=== PATIENT | female | born 1985 | race Caucasian/White ===

== ENCOUNTER 2016-11-04 22:59 | Inpatient (IN) | payer OTHER ==
[~2016-11-04] VITALS: Ht 170.2 cm; Wt 82.6 kg
--- NOTE | 2016-11-04 23:10 | NUR ---
TO BED 3 AMBULATORY C/O ABDOMINAL PAIN WITH N/V X3 DAYS. PT AAOX4 NO ACUTE DISTRESS NOTED, RESP EVEN AND UNLABORED. PENDING ER MD HUBBARD.
--- NOTE | 2016-11-04 23:12 | NUR ---
ER MD AT BEDSIDE TO EVAL PT WITH ORDERS RECEIVED.
--- NOTE | 2016-11-04 23:34 | NUR ---
RN AT BEDSIDE TO MEDICATE PT.
[2016-11-04 23:38] LABS: BASOPHILS # (AUTO) 0.1 /CMM (0.0-0.2); BASOPHILS % (AUTO) 0.8 % (0.0-2.0); EOSINOPHILS # (AUTO) 0.1 /CMM (0.0-0.7); EOSINOPHILS % (AUTO) 0.6 % (0.0-6.0); HEMATOCRIT 48 % (33-45); HEMOGLOBIN 16.5 g/dL (11.5-14.8); LYMPHOCYTES # (AUTO) 1.2 /CMM (0.8-4.8); LYMPHOCYTES % (AUTO) 12.3 % (20.0-44.0); MEAN CORPUSCULAR HEMOGLOBIN 31 PG (26.0-33.0); MEAN CORPUSCULAR HGB CONC 34 g/dl (31.0-36.0); MEAN CORPUSCULAR VOLUME 90 fL (82-100); MONOCYTES # (AUTO) 0.8 /CMM (0.1-1.30); NEUTROPHILS # (AUTO) 7.7 /CMM (1.8-8.9); NEUTROPHILS % (AUTO) 78.3 % (43.0-81.0); PLATELET COUNT (AUTO) 227 /CMM (150-450); RDW COEFFICIENT OF VARIATION 12.8 (11.5-15.0); RED BLOOD CELL COUNT(AUTO) 5.32 MIL/uL (4.0-5.2); WHITE BLOOD COUNT (AUTO) 9.8 K/uL (4.3-11.0)
[2016-11-04 23:59] LABS: ALBUMIN 4.1 g/dL (3.4-5.0); BILIRUBIN,DIRECT 4.1 mg/dL (0.0-0.2); BILIRUBIN,TOTAL 5.6 mg/dL (0.2-1.0); CALCIUM, SERUM 8.9 mg/dL (8.5-10.1); CREATININE 0.7 mg/dL (0.6-1.3); POTASSIUM 3.4 mmol/L (3.5-5.1); TOTAL PROTEIN, SERUM 6.9 g/dL (6.4-8.2)
--- NOTE | 2016-11-05 00:35 | NUR ---
JUAN LOGAN AT BEDSIDE TO RE-EVAL PT.
--- NOTE | 2016-11-05 00:59 | NUR ---
PT STILL C/O ABDOMINAL PAIN 09/15. ER MD MADE AWARE WITH ORDERS RECEIVED. RN TO MEDICATE PT.
--- NOTE | 2016-11-05 01:05 | NUR ---
PT MEDICATED BY RN PER ER MD ORDER.
--- NOTE | 2016-11-05 01:10 | NUR ---
GALLBLADDER FRANCES DONE.
--- NOTE | 2016-11-05 01:26 | NUR ---
CALLED BRENDA TO EXPEDITE CT REPORT.
--- NOTE | 2016-11-05 01:27 | NUR ---
M/S 112-1
--- NOTE | 2016-11-05 01:40 | NUR ---
IVPB K BAG #1 OF 2 TRANFUSING AT THIS TIME. PT PLACED ON MONITOR.
[2016-11-05 01:43] LABS: APPEARANCE,URINE SL CLOUDY (CLEAR); BILIRUBIN,URINE 2+ (NEGATIVE); BLOOD, URINE 3+ Ery/uL (NEGATIVE); KETONES,URINE TRACE (NEGATIVE); LEUKOCYTE ESTERASE ,URINE NEGATIVE (NEGATIVE); NITRITE, URINE NEGATIVE (NEGATIVE); PH,URINE 6.5 (5.0-8.0); PROTEIN,URINE TRACE mg/dl (NEGATIVE); UGLUCOSE NEGATIVE (NEGATIVE)
[2016-11-05 01:44] LABS: COLOR,URINE DARK YELLOW (YELLOW)
--- NOTE | 2016-11-05 01:46 | NUR ---
Shiv collier in [facility] - 11/05/16 at 0209 by BRITNEY PT TRANSPORTED TO RADIOLOGY FOR CT.
[2016-11-05 01:47] LABS: BACTERIA,URINE Few /HPF (None Seen); RBC,URINE 81-100 /HPF (0-2); SQUAMOUS EPITHELIAL CELL,UR Few /HPF (None Seen)
--- NOTE | 2016-11-05 01:49 | NUR ---
MADE PANEL CALL.
--- NOTE | 2016-11-05 01:52 | NUR ---
ER MD SPOKE TO DR. JESSICA LENNON REGARDING PT ADMISSION.
--- NOTE | 2016-11-05 01:55 | NUR ---
REPORT CALLED TO M/S ALEXIS BYNUM. WILL TRANSPORT PT TO ROOM 112-2.
[2016-11-05 02:20] VITALS: BP 133/76
--- NOTE | 2016-11-05 02:20 | NUR ---
RN NOTES RECEIVED PATIENT FROM ER VIA STRETCHER IN STABLE CONDITION, NO RESPIRATORY DISTRESS OR SHORTNESS OF BREATH. BREATHING EVEN AND UNLABORED. ALERT AND ORIENTED X 4. VERBALLY ABLE TO COMMUNICATE NEEDS. AMBULATORY. CONTINENT OF BOWEL AND BLADDER FUNCTION. COMPLAINED OF MILD EPIGASTRIC PAIN.SKIN ASSESSMENT DONE. VITAL SIGNS WNL. WILL CONTINUE TO MONITOR.
[2016-11-05 02:30] VITALS: BP 133/76
[2016-11-05 04:00] VITALS: BP 122/73
--- NOTE | 2016-11-05 06:46 | NUR ---
RN CLOSING NOTES PATIENT RESTING COMFORTABLY IN BED, STILL WITH COMPLAINT OF MILD PAIN IN ABDOMEN. NO SHORTNESS OF BREATH. FOR MRI IN AM. NO SIGNIFICANT CHANGE OF CONDITION. WILL ENDORSE TO AM SHIFT FOR CONTINUITY OF CARE.
[2016-11-05] MEDS ORDERED: DEXT5TAB15 PO (07:48)
[2016-11-05] MEDS ORDERED: NORG1TAB22 PO (07:48)
[2016-11-05] MEDS ORDERED: OLAN2.5T3 PO (07:48)
[2016-11-05] MEDS ORDERED: PRAZ2CAP2 PO (07:48)
[2016-11-05] MEDS ORDERED: LORA1TAB PO (07:48)
[2016-11-05 08:00] VITALS: BP 121/85
--- NOTE | 2016-11-05 08:00 | NUR ---
MS RN NOTES RECEIVED PATIENT IN STABLE CONDITION, NO RESPIRATORY DISTRESS OR SHORTNESS OF BREATH. BREATHING EVEN AND UNLABORED. ALERT AND ORIENTED X 4. VERBALLY ABLE TO COMMUNICATE NEEDS. AMBULATORY. CONTINENT OF BOWEL AND BLADDER FUNCTION. COMPLAINED OF MILD EPIGASTRIC PAIN AND FEELS NAUSEOUS.MORPHINE SULFATE IV AND ZOFRAN IV GIVEN PRN FOR MANAGEMENT.WILL CONTINUE TO MONITOR FOR EFFECTIVENESS.
--- NOTE | 2016-11-05 08:27 | NUR ---
TEXTED DR. WILSON FOR MRI APPROVAL.
--- NOTE | 2016-11-05 09:37 | NUR ---
MRI APPROVED.SPOKE TO NURSE SOON, IT WILL BE DONE AT 1PM AND PATIENT HAS TO BE NPO. 4 HRS BEFORE THE EXAM.
--- NOTE | 2016-11-05 13:40 | NUR ---
PT WENT FOR MRCP PROCEDURE AND WAS PUT ON NPO SINCE BREAKFAST TIME.PT IS COMPLIANT.CONSENT AND CHECKLIST HAS BEEN SIGNED.
[2016-11-05 16:00] VITALS: BP 126/78
--- NOTE | 2016-11-05 18:00 | NUR ---
PT RESTING IN BED WITH MILD NAUSEA AND DENIES DISTRESS.ZOFRAN GIVEN PRN AND NOT DUE YET.HOB ELEVATED.CALL LIGHT PLACED WITHIN REACH.
[2016-11-05 20:00] VITALS: BP 119/70
--- NOTE | 2016-11-05 22:46 | NUR ---
MS RN NOTES PATIENT C/O NAUSEA AND VOMITING. NOTED VOMITING. INFORMED MD, WITH NEW ORDERS OK TO GIVE EXTRA DOSE OF ZOFRAN AND NS AT 100ML/HR. WILL CONTINUE TO MONITOR. RELAYED TO PRIMARY NURSE.
[2016-11-06] VITALS: BP 119/70
--- NOTE | 2016-11-06 02:00 | NUR ---
MANAGER OF PRODUCT NOTE DC'D WILBERT. PATIENT TOLERATED WELL.
[2016-11-06 04:00] VITALS: BP 124/67
--- NOTE | 2016-11-06 06:05 | NUR ---
MS RN NOTE PATIENT STABLE. PAIN AND NAUSEA MANAGED THROUGHOUT THE NIGHT. ALL NEEDS MET AND ATTENDED TO. WILL ENDORSE TO DAY SHIFT FOR NAUN.
[2016-11-06 06:58] LABS: BASOPHILS % (AUTO) 0.7 % (0.0-2.0); EOSINOPHILS # (AUTO) 0.3 /CMM (0.0-0.7); EOSINOPHILS % (AUTO) 5.8 % (0.0-6.0); HEMATOCRIT 41 % (33-45); LYMPHOCYTES # (AUTO) 1.9 /CMM (0.8-4.8); LYMPHOCYTES % (AUTO) 35.1 % (20.0-44.0); MEAN CORPUSCULAR HEMOGLOBIN 32 PG (26.0-33.0); MEAN CORPUSCULAR HGB CONC 34 g/dl (31.0-36.0); MEAN CORPUSCULAR VOLUME 92 fL (82-100); MONOCYTES # (AUTO) 0.6 /CMM (0.1-1.30); MONOCYTES % (AUTO) 11.8 % (2.0-12.0); NEUTROPHILS # (AUTO) 2.5 /CMM (1.8-8.9); NEUTROPHILS % (AUTO) 46.6 % (43.0-81.0); PLATELET COUNT (AUTO) 185 /CMM (150-450); RDW COEFFICIENT OF VARIATION 13.6 (11.5-15.0); RED BLOOD CELL COUNT(AUTO) 4.43 MIL/uL (4.0-5.2); WHITE BLOOD COUNT (AUTO) 5.4 K/uL (4.3-11.0)
[2016-11-06 07:13] LABS: ALBUMIN 3.3 g/dL (3.4-5.0); BILIRUBIN,TOTAL 6.5 mg/dL (0.2-1.0); CALCIUM, SERUM 8.4 mg/dL (8.5-10.1); CREATININE 0.8 mg/dL (0.6-1.3); MAGNESIUM 1.7 mg/dL (1.8-2.4); PHOSPHORUS 2.4 mg/dL (2.5-4.9); POTASSIUM 3.5 mmol/L (3.5-5.1); TOTAL PROTEIN, SERUM 5.8 g/dL (6.4-8.2)
[2016-11-06 07:22] LABS: THYROID STIMULATING HORMONE 1.462 uIU/mL (0.358-3.74)
--- NOTE | 2016-11-06 07:50 | NUR ---
MS RN OPENING NOTE PATIENT IS ALERT AND ORIENTED x4. PATIENT STATES PAIN AT THIS TIME 8/10, BUT DOES NOT WANT PAIN MEDICATION JUST YET. OFFERED OTHER ALTERNATIVES. NO SOB OR DISTRESS NOTED. CALL LIGHT WITHIN REACH. SAFETY MEASURES IMPLEMENTED. ABLE TO COMMUNICATE NEEDS. AM LABS DONE THIS MORNING. IV INTACT AND PATENT NO REDNESS OR SWELLING NOTED. IV FLUIDS RUNNING AT THIS TIME, NS AT 100ML/HR TOLERATING WELL. PATIENT STATES SHE FEELS NAUSEOUS WHEN SHE AMBULATES, OFFERED ICE CHIPS. PATIENT RESTING IN BED AT THIS TIME. WILL CONTINUE TO MONITOR THROUGHOUT SHIFT
[2016-11-06 08:00] VITALS: BP 100/64
[2016-11-06 16:00] VITALS: BP 123/77
--- NOTE | 2016-11-06 18:47 | NUR ---
MS RN CLOSING NOTE PATIENT IS ALERT AND ORIENTED x4. NO PAIN AT THIS TIME NOTED. NO SOB OR DISTRESS NOTED. CALL LIGHT WITHIN REACH AT ALL TIMES. SAFETY MEASURES IMPLEMENTED. ABLE TO COMMUNICATE NEEDS. IV ON RIGHT WRIST INTACT AND PATENT, IVF RUNNING AT 100 ML/HR, TOLERATING WELL. ALL ELECTROLYTES REPLACED NEEDED. PATIENT HAD 6 EPISODES OF EMESIS, MD AWARE. HAS AM LAB DRAW TOMORROW MORNING 11/07/16. WILL ENDORSE TO [facility] SUPERVISOR NURSE FOR NAUN
[2016-11-06 20:00] VITALS: BP 123/82
--- NOTE | 2016-11-07 00:15 | NUR ---
MD CASTLE AT BEDSIDE, WITH NEW ORDER OF LABS IN AM. PT AWARE.
[2016-11-07 04:00] VITALS: BP 135/85
[2016-11-07 06:20] LABS: BASOPHILS % (AUTO) 0.6 % (0.0-2.0); EOSINOPHILS # (AUTO) 0.3 /CMM (0.0-0.7); EOSINOPHILS % (AUTO) 4.4 % (0.0-6.0); HEMATOCRIT 40 % (33-45); HEMOGLOBIN 14.1 g/dL (11.5-14.8); LYMPHOCYTES # (AUTO) 2.4 /CMM (0.8-4.8); LYMPHOCYTES % (AUTO) 39.6 % (20.0-44.0); MEAN CORPUSCULAR HEMOGLOBIN 32 PG (26.0-33.0); MEAN CORPUSCULAR HGB CONC 35 g/dl (31.0-36.0); MEAN CORPUSCULAR VOLUME 93 fL (82-100); MONOCYTES # (AUTO) 0.9 /CMM (0.1-1.30); MONOCYTES % (AUTO) 14.9 % (2.0-12.0); NEUTROPHILS # (AUTO) 2.4 /CMM (1.8-8.9); NEUTROPHILS % (AUTO) 40.5 % (43.0-81.0); PLATELET COUNT (AUTO) 186 /CMM (150-450); RDW COEFFICIENT OF VARIATION 13.3 (11.5-15.0); RED BLOOD CELL COUNT(AUTO) 4.36 MIL/uL (4.0-5.2)
[2016-11-07 06:34] LABS: CALCIUM, SERUM 8.4 mg/dL (8.5-10.1); CREATININE 0.8 mg/dL (0.6-1.3); PHOSPHORUS 2.9 mg/dL (2.5-4.9); POTASSIUM 3.6 mmol/L (3.5-5.1)
[2016-11-07 08:00] VITALS: BP 128/85
[2016-11-07 16:00] VITALS: BP_SYST 116; BP_SYST 121; BP_DIAS 66; BP_DIAS 80
--- NOTE | 2016-11-07 18:55 | NUR ---
RN NOTE NO ACUTE CHANGE OF CONDITION THIS SHIFT. NO EMESIS THIS SHIFT. PATIENT BREATHING EVEN AND UNLABORED ON ROOM AIR. PRN MEDICATION EFFECTIVE. DR. FOSS SAW PATIENT TODAY. DR. MOFFETT SAID HE WOULD CONTACT GI DOCTOR FOR FURTHER WORK UP. PATIENT IS AWARE. SIGNIFICANT OTHER AT BED SIDE AT THIS TIME. TOLERATING SMALL AMOUNTS OF PO INTAKE. EDUCATED PATIENT AT LENGTH ABOUT RISKS AND BENEFITS OF MEDICATION BEING GIVEN AND DIAGNOSTIC TESTS. CALL LIGHT IN REACH. PATIENT ABLE TO CLEARLY VERBALIZE NEEDS.
[2016-11-07 20:00] VITALS: BP 138/91
[2016-11-07 22:26] LABS: FERRITIN 301 ng/mL (8-388); IRON, SERUM 259 ug/dl (50-175)
[2016-11-08] VITALS: BP 129/92
[2016-11-08 04:00] VITALS: BP_SYST 121; BP_SYST 145; BP_DIAS 69; BP_DIAS 85
[2016-11-08 05:53] LABS: BASOPHILS % (AUTO) 0.6 % (0.0-2.0); EOSINOPHILS # (AUTO) 0.3 /CMM (0.0-0.7); EOSINOPHILS % (AUTO) 4.4 % (0.0-6.0); HEMATOCRIT 39 % (33-45); HEMOGLOBIN 13.6 g/dL (11.5-14.8); LYMPHOCYTES # (AUTO) 2.4 /CMM (0.8-4.8); MEAN CORPUSCULAR HEMOGLOBIN 32 PG (26.0-33.0); MEAN CORPUSCULAR HGB CONC 35 g/dl (31.0-36.0); MEAN CORPUSCULAR VOLUME 92 fL (82-100); MONOCYTES # (AUTO) 0.9 /CMM (0.1-1.30); NEUTROPHILS # (AUTO) 2.3 /CMM (1.8-8.9); PLATELET COUNT (AUTO) 188 /CMM (150-450); RDW COEFFICIENT OF VARIATION 13.2 (11.5-15.0); RED BLOOD CELL COUNT(AUTO) 4.28 MIL/uL (4.0-5.2); WHITE BLOOD COUNT (AUTO) 5.8 K/uL (4.3-11.0)
[2016-11-08 06:07] LABS: ALBUMIN 3.2 g/dL (3.4-5.0); BILIRUBIN,TOTAL 3.5 mg/dL (0.2-1.0); CALCIUM, SERUM 8.2 mg/dL (8.5-10.1); CREATININE 0.8 mg/dL (0.6-1.3); POTASSIUM 3.2 mmol/L (3.5-5.1); TOTAL PROTEIN, SERUM 5.9 g/dL (6.4-8.2)
--- NOTE | 2016-11-08 06:45 | NUR ---
Slep most of the night after plain meds given
--- NOTE | 2016-11-08 07:49 | NUR ---
RN NOTES: PT RECEIVED IN STABLE CONDITION ALERT AWAKE OX4. ABLE TO MAKE NEEDS KNOWN. ON ROOM AIR, BREATHING PATTERN REGULAR & UNLABORED. IV SITE INTACT, RUNNING WITH IV FLUIDS ORDERED BY MD. AMBULATORY WITHOUT DIFFICULTY. C/O ABDOMINAL PAIN, PAIN MANAGEMENT MEDICATION GIVEN ORDERED. SAFETY MEASURES OBSERVED. NPO EXCEPT MEDS. CALL LIGHT WITHIN REACH. WILL CONTINUE TO MONITOR.
[2016-11-08 08:00] VITALS: BP 127/84
--- NOTE | 2016-11-08 15:44 | NUR ---
RN NOTES: PATIENT HAD EGD TODAY WITH FINDING DUODENAL ULCER & GASTRITIS. WAITING FOR H-PYLORI RESULTS. CONTINUE ON PAIN MANAGEMENT MEDICATION ORDERED. POTASSIUM REPLACEMENT WAS ORDERED IV, PATIENT WAS NOT ABLE TO TOLERATE. GIVEN 1 BAG, 2 ND BAG WASTED. SPOKE WITH PHARMACIST CONVERT TO PO. 3 TABLETS 10MEQ POTASSIUM GIVEN TO PATIENT ORDERED. CONTINUE TO MONITOR CLOSELY.
[2016-11-08 16:00] VITALS: BP 121/65
--- NOTE | 2016-11-08 19:43 | NUR ---
RN INITIAL NOTE; PT ON THE BED RESTING , A/O X 4 , BREATHING EVEN AND UNLABORED ON ROOM AIR , WITH C/O ABD PAIN 6/10 AT THIS TIME, WILL GIVE PAIN MEDS , NON PHARMACOLOGICAL INTERVENTIONS APPLIED. PERIPHERAL IV IN RW 22 G INTACT AND PATENT WITH NS @ 100 MLS/HR . BED IN THE LOWEST/LOCKED POSITION . SAFETY MEASURES APPLIED. CONTINENT TO BOWEL/BLADDER . WILL CONTINUE TO MONITOR .
[2016-11-08 20:00] VITALS: BP 124/78
--- NOTE | 2016-11-08 20:20 | NUR ---
RN NOTE; PRN NORCO 10/325 MG PO GIVEN FOR ABDOMINAL PAIN 09/15 ,NON PHARMACOLOGICAL INTERVENTION APPLIED. TOLERATED WELL AT THIS TIME , WILL REASSESS.
--- NOTE | 2016-11-08 23:56 | NUR ---
RN NOTE; PRN MORPHINE 3 MG IV GIVEN FOR ABDOMINAL PAIN 09/15 ,NON PHARMACOLOGICAL INTERVENTION APPLIED. TOLERATED WELL AT THIS TIME , WILL REASSESS.
--- NOTE | 2016-11-09 01:22 | NUR ---
RN NOTE; PRN AMBIEN 5 MG PO GIVEN FOR INSOMNIA AND PRN ZOFRAN 4 MG IV GIVEN FOR NAUSEA , TOLERATED WELL AT THIS TIME , WILL REASSESS.
[2016-11-09 04:00] VITALS: BP 117/72
--- NOTE | 2016-11-09 06:48 | NUR ---
RN EOS NOTE; PT REMAINED STABLE DURING THE SHIFT. NO ANY DISTRESS NOTED. ALL NEEDS ATTENDED PROMPTLY. PRN MEDS GIVEN FOR PAIN . IVF TOLERATED WELL. ASSISTED TO RESTROOM NEEDED , PRN MILK OF MAGNESIA GIVEN FOR CONSTIPATION . WILL ENDORSE TO NEXT SHIFT RN FOR CONTINUITY OF CARE.
--- NOTE | 2016-11-09 07:05 | NUR ---
RN INITIAL NOTE PATIENT RECEIVED IN BED RESTING. NO S/S OF PAIN OR DISCOMFORT. ABLE TO MAKE NEEDS KNOWN. RESPIRATIONS ARE EVEN AND UNLABORED. NO S/S OF SOB OR RESPIRATORY DISTRESS. SATING WELL ON ROOM AIR. SKIN IS WARM AND DRY TO TOUCH. IV SITE FLUSHED, PATENT. SAFETY PRECAUTIONS IMPLEMENTED, BED IN LOCKED, LOW POSITION WITH TWO SIDE RAILS UP. CALL LIGHT AND BELONGINGS WITHIN EASY REACH. WILL CONTINUE TO MONITOR.
[2016-11-09 08:00] VITALS: BP 114/80
[2016-11-09] MEDS ORDERED: HYDR-552 PO (13:50)
[2016-11-09] MEDS ORDERED: ONDA4TAB8 PO (13:50)
[2016-11-09 16:00] VITALS: BP 134/74
--- NOTE | 2016-11-09 18:00 | NUR ---
RN CLOSING NOTE. PATIENT DISCHARGED, PAPERWORK COMPLETE. IV SITE AND ID REMOVED.
== END 2016-11-09 19:56 | disposition home or self-care (01) ==
LOC: ER 23:02 → MEDSG1 11-05 02:07
PROC: 0DB68ZX Excision of Stomach, Via Natural or Artificial Opening Endoscopic, Diagnostic (ICD-10-PCS; principal; 2016-11-08 09:40)
PROC: 0DB98ZX Excision of Duodenum, Via Natural or Artificial Opening Endoscopic, Diagnostic (ICD-10-PCS; principal; 2016-11-08 09:40)
DX: K81.0 Acute cholecystitis (principal); K26.9 Duodenal ulcer, unspecified as acute or chronic, without hemorrhage or perforation; E88.09 Other disorders of plasma-protein metabolism, not elsewhere classified; E83.42 Hypomagnesemia; E83.39 Other disorders of phosphorus metabolism; E87.6 Hypokalemia; E83.51 Hypocalcemia; F17.210 Nicotine dependence, cigarettes, uncomplicated; F41.9 Anxiety disorder, unspecified; K29.70 Gastritis, unspecified, without bleeding; Z87.01 Personal history of pneumonia (recurrent); R74.0 Nonspecific elevation of levels of transaminase and lactic acid dehydrogenase [LDH]; E80.6 Other disorders of bilirubin metabolism
CPT/HCPCS: 36415; 71010-TC; 74181-TC; 76705-TC; 80048-TC; 80053-TC; 80061-TC; 80074; 80076-TC; 81000-TC; 82728-TC; 83540-TC; 83690-TC; 83735-TC; 84100-TC; 84443-TC; 84703-TC; 85025-TC; 86308-TC; 87081-TC; 88305-TC; 88313-TC; 88342; A4606; J1170; J2270; J2405; J2704; J3475; J3480; J3490; J7030; J7040; Z7610

== ENCOUNTER 2017-03-30 14:36 | Emergency (ER) | payer OTHER ==
[~2017-03-30] VITALS: Ht 170.2 cm; Wt 77.1 kg
[~2017-03-30 14:36] MED LIST: DEXT5TAB15 PO; HYDR-552 PO; LORA1TAB PO; NORG1TAB22 PO; OLAN2.5T3 PO; ONDA4TAB8 PO; PRAZ2CAP2 PO
[2017-03-30] MEDS ORDERED: LORAZEPAM 1 MG TABLET PO ONE (15:00)
--- NOTE | 2017-03-30 15:00 | NUR ---
PT CAME IN WITH C/O PANIC ATTACK/ANXIETY SINCE THIS MORNING. SEEN BY MD FOR EVAL. VSS. MEDICATED ORDERED. SAFETY AND COMFORT MEASURES PROVIDED. WILL MONITOR.
[2017-03-30] MEDS ORDERED: LORAZEPAM 1 MG TABLET ONE (15:01)
[2017-03-30 15:30] VITALS: BP 154/88
--- NOTE | 2017-03-30 15:31 | NUR ---
PT WAITING FOR PARTNER TO PICK HER UP.
--- NOTE | 2017-03-30 15:31 | NUR ---
Patient discharged to home in stable condition. Written and verbal after care instructions given. Patient verbalizes understanding of instruction.
== END 2017-03-30 15:33 | disposition home or self-care (01) ==
LOC: ER 14:39
DX: F41.9 Anxiety disorder, unspecified (principal); F17.200 Nicotine dependence, unspecified, uncomplicated; Z87.01 Personal history of pneumonia (recurrent); Z60.2 Problems related to living alone
CPT/HCPCS: 99284; A4606; Z7610